=== PATIENT | female | born 1990 | race Caucasian/White ===

== ENCOUNTER 2024-09-20 19:54 | Emergency (ER) | payer OTHER, SELFPAY ==
[2024-09-20 19:57] VITALS: BP 162/113
[2024-09-20 20:16] LABS: % Basophils 0.2 % (0-2); % Eosinophils 0.6 % (0-6); % Immature Granulocytes 0.5 % (0-0.5); % Monocytes 6.7 % (1.7-9.3); Absolute Eosinophils 0.1 10^3/uL (0-0.7); Absolute Immature Granulocytes 0.1 10^3/uL (0-0.05); Absolute Lymphocytes 1.5 10^3/uL (1.2-3.4); Absolute Neutrophils 12.3 10^3/uL (1.4-6.5); Hematocrit 41.4 % (37.0-47.0); Hemoglobin 14.4 g/dL (12.0-16.0); Mean Corp Hgb Conc. 34.8 g/dL (33.0-37.0); Mean Corpuscular Hgb 30.1 pg (27.0-31.0); Mean Corpuscular Volume 86.4 fL (81.0-99.0); Nucleated Red Blood Cells % 0 %; Platelet Count 148 10^3/uL (130-400); Red Blood Cell Count 4.79 10^6/uL (4.20-5.40); Red Cell Dist. Width 13.3 % (11.5-14.5)
[2024-09-20 20:28] LABS: Lactic Acid 1.3 mmol/L (0.7-2.0)
[2024-09-20 20:38] LABS: Blood Urea Nitrogen 10 mg/dl (7-17); Calcium 9.8 mg/dl (8.4-10.2); Carbon Dioxide 22 mmol/L (22-30); Chloride 104 mmol/L (98-107); Glucose 321 mg/dl (70-99); Potassium 4.4 mmol/L (3.5-5.1); Sodium 135 mmol/L (135-145); eGFR > 60.00
--- NOTE | 2024-09-20 21:26 | ED.GENMED ---
History of Present Illness
General
Chief Complaint: Skin Problem
Source: patient
Exam Limitations: none
Time Seen by Provider: 09/20/24 21:10
Nursing documentation reviewed up to this point in time: agreed with
History of Present Illness
History of Present Illness:
The patient is a 34-year-old female with a history of diabetes mellitus, presenting with painful abscesses. The onset of two ingrown hairs was on Monday, with evolution into painful, inflamed abscesses by Monday. Associated symptoms include
chills, body aches, and restricted arm movement. The patient reported fever onset, reaching 100�F from 99�F within a few hours. Urgent care initiation with cephalexin demonstrated insufficient MRSA coverage.
Past History
Past History
ED Past Medical History: NIDDM and Other (PCO as diabetes)
ED Past Surgical History: Negative Cardiac or Cholecystectomy
Social History
Tobacco: Non-smoker
Alcohol: None
Drug: None
Living: with family
Employment: Employed
Family History
Family History: Diabetes and CAD
Review of Systems
Review of Systems
Allergies reviewed?: Yes
All Other Systems: ROS reviewed and negative except as documented in HPI and ROS
Phy Exam
Physical Exam
Physical Exam:
GENERAL: Alert , in no apparent distress
EYE: pupils equal and reactive
NECK: Supple, no significant adenopathy.
ENT: o/p clr, mmm.
CARDIAC: Regular rate and rhythm .
LUNGS: Clear breath sounds bilaterally, no acute respiratory distress, no wheezes/rales/rhonchi
ABDOMEN: Soft, without focal tenderness, no r/g, no cvat
NEUROLOGICAL: Alert and oriented, no focal neuro deficits
SKIN: 2 distinct areas of the right axilla that are fluctuant indurated no active drainage. Tender to palpation. Warm and dry, skin intact.
MUSCULOSKELETAL: No edema, well perfused.
PSYCH: Normal and appropriate interaction.
Sepsis
Sepsis Screening
Sepsis Assessment: Sepsis Ruled Out
Sepsis Screen
Sepsis Screen: Sepsis Ruled Out
Date: 09/20/24
Time: 22:08
Course
Orders/Labs/Results
Orders:
Orders
09/20/24 20:08
Basic Metabolic Panel Urgent
Complete Blood Count/With Diff Urgent
Lactic Acid Urgent
Blood Culture Urgent
ANOOP Source: Blood/Venous
Specimen Description:
09/20/24 21:25
Acetaminophen [Tylenol] 1,000 mg PO NOW STA
Sulfamethox./Trimethoprim Ds [Bactrim Ds 800 mg/160 mg] 1 tablet PO NOW STA
Abnormal Lab Results
09/20/24
20:08
WBC 15.0 H 10^3/uL
(4.8-10.8)
Abs Immat Gran (auto) 0.1 H 10^3/uL
(0-0.05)
Absolute Neuts (auto) 12.3 H 10^3/uL
(1.4-6.5)
Absolute Monos (auto) 1.0 H 10^3/uL
(0.1-0.6)
Neutrophils % 82.0 H %
(42.2-75.2)
Lymphocytes % 10.0 L %
(20.5-51.1)
Glucose 321 H mg/dl
(70-99)
09/20/24 20:08
09/20/24 20:08
Vital Signs
Initial and Last Documented VS:
Initial Vital Signs
Temp Pulse Resp BP Pulse Ox
99 F 111 18 162/113 98
09/20/24 19:57 09/20/24 19:57 09/20/24 19:57 09/20/24 19:57 09/20/24 19:57
Last Documented Vital Signs
Temp Pulse Resp BP Pulse Ox
99 F 109 20 126/86 98
09/20/24 19:57 09/20/24 21:32 09/20/24 21:32 09/20/24 21:32 09/20/24 21:32
Procedures
Incision/Drainage/Joint Aspiration
right axilla:
Anethesia: 1% Lidocaine with Epi
Preparation: cleaned with alcohol wipe
Type of procedure: incise and drain
Nature of site: abscess
Description of abscess: less than 3cm
Loculations broken up: Yes
How much fluid was obtained?: small amount
Fluid description: purulent
Treatment: left open for drainage
MDM/Problems Addressed
MDM/Problems Addressed:
Patient presenting with 2 small abscesses to the right axilla region.
Plan for drainage of abscesses, initiation of antibiotics effective against MRSA. Educate on MRSA eradication protocol, including topical chlorhexidine washes. Recommend improved glucose control with adequate hydration and decreased carbohydrate
intake. Administer acetaminophen and local anesthetic for abscess incision and drainage. Patient
Drainage performed patient tolerated well stable for discharge return precautions given.
*Pulse Oximetry
SaO2: 98
Oxygen Mode of Delivery: Room air
*Critical Care Note
Total Time (30-74mins, 75-104mins- exclusive of procedures): Not Applicable
ED Attending Note
-
Portions of this chart may have been created with voice recognition software.� Occasional wrong word or��sound alike� substitutions may have occurred due to the inherent limitations of voice recognition software.
Discharge Plan
Departure
Patient Disposition: Home (Routine Discharge)
Date of Disposition: 09/20/24
Time of Disposition: 22:05
Patient with high blood pressure during this ER visit?: No
Condition: Good
Covid-19: Not Applicable
Discharge Problem:
Abscess of axilla, right
Instructions: Skin Abscess
Prescriptions:
New
sulfamethoxazole-trimethoprim [Bactrim DS] 800-160 mg tablet
1 tab PO BID 5 Days Qty: 10 0RF
mupirocin [Centany] 2 % ointment
1 applic topical BID Qty: 22 0RF
No Action
metformin 1,000 mg Tablet
1,000 mg PO BID
Ozempic 0.25 mg or 0.5 mg(2 mg/1.5 mL) Pen Injector
0.5 mg SC QWEEK
Referrals:
Magda Wiley, [Family Provider, Family Practice]
Activity Restrictions/Additional Instructions:
You came to the emergency department today with concerns of 2 small abscesses to your right axilla. These were incised and drained. Please use warm compresses to the area and take the prescribed Bactrim twice daily for the next 5 days. Please
also use the mupirocin and chlorhexidine body wash. Please follow close with the primary care doctor. Return for any worsening, new or concerning symptoms.
Interventions
Interventions:
*Risk Screen - Suicide Last Done: 09/20/24 19:57
*General Assessment Last Done: 09/20/24 21:32
*Neglect/Abuse Screening Last Done: 09/20/24 19:57
*ED- Fall Risk Assessment Last Done: 09/20/24 21:32
*ED COVID-19 Vaccine History Last Done: 09/20/24 21:32
ED-Skin Assessment Last Done: 09/20/24 21:33
Discharge Date and Time
Print Language: GABONESE
[2024-09-20] MEDS: TYLENOL 1000 MG PO (21:27)
[2024-09-20] MEDS: BACTRIM DS 800 MG/160 MG 1 TABLET PO (21:27)
[2024-09-20 21:32] VITALS: BP 126/86; BMI 45.5
== END 2024-09-20 22:16 | disposition home or self-care (01) ==
LOC: EMR 19:54
PROVIDERS: Student in an Organized Health Care Education/Training Program; EMERGENCY PHYSICIAN Emergency Medicine; FAMILY PHYSICIAN Family Medicine
DX: L02.411 Cutaneous abscess of right axilla (principal); E11.9 Type 2 diabetes mellitus without complications
CPT/HCPCS: 99283; 10060; 80048; 83605; 85025; 87040